=== PATIENT | male | born 1945 | race Caucasian/White ===

== ENCOUNTER → 2024-04-05 10:05 | Outpatient (CLI) | payer OTHER, SELFPAY ==
--- NOTE | 2024-04-05 10:09 | DI.ECHO.S_ITS ---
[place] [facility] : : [address] : [place] : : [id number] : : Phone: [phone] Echocardiogram Report + + :Name: GABRIELA FAITH Study Date: 04/05/2024 Height: 70 in : :[facility] ReadingLocation: Weight: 187 lb : : Gender: Male BSA: 2.0 m2 : :: 1945 Age: 78 yrs BP: 118/65 mmHg: :Reason For Study: HYPERTENSION : :Ordering Physician: RYAN, : :KATHARINA Performed By: Ariel Davila : :Referring: KATHARINA DAVIS : + + Interpretation Summary The patient was in atrial fibrillation with heart rates between 55-96 bpm during the exam. Left ventricular wall thickness is mildly increased. The ejection fraction is estimated to be 55-60%. Diastolic function could not be accurately assessed due to atrial fibrillation. The left atrium is severely dilated. The right ventricle is mildly dilated. The right ventricular systolic function is normal. The right atrium is moderately dilated. There is moderate mitral regurgitation. There is mild to moderate aortic regurgitation. There is moderate tricuspid regurgitation. Right ventricular systolic pressure is estimated to be 34 mmHg plus the clinically estimated CVP which cannot be estimated on this exam. Compared to the prior study dated 03/01/2023, there is an increase in the aortic and tricuspid regurgitation. Procedure: A two-dimensional transthoracic echocardiogram with color flow and Doppler was performed. The study quality was technically adequate. Comparison is made with the echocardiogram of 03/01/2023. The patient was in atrial fibrillation with heart rates between 55-96 bpm during the exam. Left Ventricle: The left ventricle is normal in size. Left ventricular wall thickness is mildly increased. The ejection fraction is estimated to be 55- 60%. Diastolic function could not be accurately assessed due to atrial fibrillation. Right Ventricle: The right ventricle is mildly dilated. The right ventricular systolic function is normal. Atria: The left atrium is severely dilated. The right atrium is moderately dilated. The interatrial septum grossly appears intact with no obvious evidence for an atrial septal defect. Mitral Valve: The mitral valve is normal. There is no mitral valve stenosis. There is moderate mitral regurgitation. Aortic Valve: The aortic valve is trileaflet. There is no aortic valve stenosis. There is mild to moderate aortic regurgitation. Tricuspid Valve: The tricuspid valve is normal. There has been no significant change since the previous study. There is moderate tricuspid regurgitation. Right ventricular systolic pressure is estimated to be 34 mmHg plus the clinically estimated CVP which cannot be estimated on this exam. Pulmonic Valve: The pulmonic valve is not well visualized. There is no pulmonic valvular stenosis. There is no pulmonic valvular regurgitation. Great Vessels: The aortic root is mildly dilated. The dimensions of the ascending aorta are normal. The inferior vena cava was not visualized. Pericardium/ Pleura There is no pericardial effusion. There is no pleural effusion. MMode/2D Measurements & Calculations LVIDd: 4.9 cm LVOT diam: 2.0 cm LVIDs: 3.5 cm Ao root diam: 3.8 cm FS: 29.6 % asc Aorta Diam: 3.6 cm IVSd: 1.4 cm LVPWd: 1.2 cm LV cobb. diameter/BSA (cm/m^2): 2.4 LV sys. diameter/BSA (cm/m^2): 1.7 LA A2 area: 40.6 cm2 RA long axis: 6.4 cm LA A4 area: 39.8 cm2 RA area: 27.3 cm2 LA length (vol): 7.9 cm RA vol: 99.3 ml LA vol: 173.7 ml RA : 49.0 ml/m2 LA vol index: 85.6 ml/m2 IVC diam: 3.4 cm RVD1 (basal): 4.4 cm RVD2 (mid): 3.5 cm TAPSE: 2.5 cm Doppler Measurements & Calculations Ao V2 max: 111.3 cm/sec LVOT Max Arun: 90.2 cm/sec Ao V2 mean: 72.1 cm/sec LV V1 max P.3 mmHg Ao max P.0 mmHg LV V1 VTI: 18.1 cm Ao mean P.4 mmHg SHANTE(I,D): 2.7 cm2 Ao V2 VTI: 21.1 cm SHANTE(V,D): 2.5 cm2 sev ratio: 0.86 SHANTE indexed to BSA (cm^2/m^2): 1.3 AI P1/2t: 436.6 msec AI dec slope: 300.3 cm/sec2 MV E max arun: 84.1 cm/sec TR max arun: 299.0 cm/sec MV A max arun: 25.0 cm/sec TR max P.0 mmHg MV E/A: 3.4 PA V2 max: 89.7 cm/sec Med Peak E' Arun: 7.9 cm/sec PA V2 mean: 66.7 cm/sec E/E' med: 10.6 PA mean P.9 mmHg Lat Peak E' Arun: 8.6 cm/sec PA pr(Accel): 41.3 mmHg E/E' lat: 9.8 E/e' average: 10.2 MV dec time: 0.14 sec SV(LVOT): 56.8 ml Reading Physician:03:[id number] PM
--- NOTE | 2024-04-05 10:09 | EKG_ITS ---
[facility] [id number] [place] [id number] Test Date: 2024-04-05 Pat Name: Demetrius Newman Department: Room: Gender: Male [employer]: SANG : 1945 Requested By: Order Number: [id number] Reading MD: Vu Terry MD Measurements Intervals [place] Rate: 65 P: DE: QRS: -53 QRSD: 130 T: 118 QT: 424 QTc: 440 Interpretive Statements Atrial fibrillation Left axis deviation Nonspecific intraventricular block Minimal voltage criteria for LVH, may be normal variant ( Deniz product ) T wave abnormality, consider lateral ischemia NO PRIOR TRACING Electronically Signed On 04-05-2024 11:56:23 PDT by Vu Terry MD
== END ==
PROVIDERS: Referring Provider Chiropractor; Visit Provider Chiropractor
DX: I08.3 Combined rheumatic disorders of mitral, aortic and tricuspid valves (principal); I77.810 Thoracic aortic ectasia; I10 Essential (primary) hypertension
CPT/HCPCS: 93005; 93010; 93306